=== PATIENT | male | born 1980 | race Caucasian/White ===

== ENCOUNTER 2018-12-11 09:09 | Emergency (ER) | payer SELFPAY ==
[~2018-12-11] VITALS: Ht 152.4 cm; Wt 127.0 kg
[2018-12-11 09:25] VITALS: BP 149/76
[2018-12-11 09:27] VITALS: BP 145/77
--- NOTE | 2018-12-11 09:27 | NUR ---
Patient to bed 12. RN evaluating patient at bedside.
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
--- NOTE | 2018-12-11 10:14 | NUR ---
payroll technician at bedside.
--- NOTE | 2018-12-11 11:11 | NUR ---
Patient discharged with v/s stable. Written and verbal after care instructions given and explained. Patient verbalized understanding. Ambulatory with steady gait. All questions addressed prior to discharge. Advised to follow up with PMD.
[2018-12-11 11:12] VITALS: BP 134/89
== END 2018-12-11 11:09 | disposition home or self-care (01) ==
LOC: MED 09:09
DX: S93.401A Sprain of unspecified ligament of right ankle, initial encounter (principal); F12.10 Cannabis abuse, uncomplicated; X58.XXXA Exposure to other specified factors, initial encounter; Y93.89 Activity, other specified; Y92.89 Other specified places as the place of occurrence of the external cause; Y99.8 Other external cause status
CPT/HCPCS: 73610; 99283; Q0092

== ENCOUNTER 2020-02-29 22:14 | Emergency (ER) | payer SELFPAY ==
[~2020-02-29] VITALS: Ht 160 cm; Wt 127.0 kg
[2020-02-29 22:18] VITALS: BP 158/98
--- NOTE | 2020-02-29 22:29 | NUR ---
PT TAKEN TO ER BED 11
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
--- NOTE | 2020-02-29 22:30 | NUR ---
PT PROVIDED WATER FOR COMFORT.
--- NOTE | 2020-02-29 22:53 | NUR ---
LAB AT BEDSIDE.
[2020-02-29 23:05] LABS: BASOPHILS # (AUTO) 0.1 K/uL (0.00-0.22); BASOPHILS % (AUTO) 0.7 % (0.0-2.0); EOSINOPHILS # (AUTO) 0.2 K/uL (0-0.4); EOSINOPHILS % (AUTO) 1.7 % (0.0-4.0); HEMATOCRIT 41.3 % (36-52); HEMOGLOBIN 13.7 g/dL (12.0-18.0); LYMPHOCYTES # (AUTO) 3.7 K/uL (2.0-11.5); LYMPHOCYTES % (AUTO) 35.2 % (20.5-51.1); MEAN CORPUSCULAR HEMOGLOBIN 29 pg (27-31); MEAN CORPUSCULAR HGB CONC 33 g/dL (33-37); MEAN CORPUSCULAR VOLUME 86.4 fL (80-94); MONOCYTES # (AUTO) 0.6 K/uL (0.8-1.0); MONOCYTES % (AUTO) 5.4 % (1.7-9.3); PLATELET COUNT (AUTO) 195 K/uL (140-450); RED BLOOD CELL COUNT(AUTO) 4.78 MIL/uL (4.20-6.10); WHITE BLOOD COUNT (AUTO) 10.5 K/uL (4.8-10.8)
--- NOTE | 2020-02-29 23:05 | NUR ---
XRAY AT BEDSIDE.
--- NOTE | 2020-02-29 23:15 | NUR ---
PT RESTING IN BED, LOCKED AND IN LOWEST POSITION, HOB ELEVATED, SIDE RAIL X1. VSS , NO ACUTE DISTRESS NOTED AT THIS TIME.
[2020-02-29 23:29] LABS: ALBUMIN 3.7 g/dL (3.4-5.0); ANION GAP 13.7 (8-16); CARBON DIOXIDE 26.9 mmol/L (21-32); CREATININE 1.5 mg/dL (0.6-1.3); POTASSIUM 3.6 mmol/L (3.5-5.1); TOTAL BILIRUBIN 0.5 mg/dL (0.0-1.0)
[2020-03-01 00:01] VITALS: BP 158/98
== END 2020-03-01 00:01 | disposition home or self-care (01) ==
LOC: MED 22:14
DX: R07.9 Chest pain, unspecified (principal); R73.9 Hyperglycemia, unspecified
CPT/HCPCS: 36415; 71045; 80053; 84484; 85025; 93005; 99285; Q0092